=== PATIENT | male | born 1950 | race African-American/Black ===

== ENCOUNTER 2024-03-24 11:12 | Emergency (ER) | payer MEDICAID ==
[~2024-03-24] VITALS: Ht 157.5 cm; Wt 55.9 kg
[2024-03-24 11:17] VITALS: BP 135/67; PULSE 66; RESP 18; TEMP 98.5; O2SAT 100
[2024-03-24] MEDS ORDERED: INSLAN SQ (11:17)
[2024-03-24] MEDS ORDERED: METF-1211 PO (11:17)
[2024-03-24] MEDS: PROPARACAINE HCL 0.5% 15 ML OPHTHALMIC SOLUTION OU ONE (12:03)
[2024-03-24] MEDS: FLUORESCEIN SODIUM 1 MG STRIP OU ONE (12:03)
== END 2024-03-24 13:02 | disposition home or self-care (01) ==
LOC: EMS 11:14
DX: H11.32 Conjunctival hemorrhage, left eye (principal); E11.65 Type 2 diabetes mellitus with hyperglycemia; Z89.512 Acquired absence of left leg below knee; Z97.0 Presence of artificial eye
CPT/HCPCS: 82962; 99283